=== PATIENT | female | born 1950 | race Caucasian/White ===

== ENCOUNTER 2020-11-06 13:41 | Emergency (ER) | payer MEDICARE, OTHER, SELFPAY ==
--- NOTE | ~2020-11-06 | XR_ITS ---
EXAMINATION: XR hip RT 2V w AP pelvis EXAM DATE: 11/06/2020 14:55 INDICATION: Pain in right hip/groin. TECHNIQUE: Right hip frontal, 'frog leg' projections for interpretation. Frontal projection pelvis. There is no prior study for comparison. FINDINGS: Smooth right hip femoral head contour, no radiographic evidence of avascular necrosis. Mi ld to moderate bilateral hip osteoarthritis. There are no acute fractures or dislocations identified. There is no subcutaneous gas. The soft tissue is unremarkable. There are no radiopaque foreign b odies. IMPRESSION: Mild to moderate bilateral hip osteoarthritis. Reviewed, dictated and finalized at location A.
[2020-11-06 13:46] VITALS: BP 137/87; PULSE 98; RESP 22; TEMP 36.2; O2SAT 93
--- NOTE | 2020-11-06 13:50 | PC.NURSE ---
Patient denies any fall, injury, or trauma leading to complaint of pain in the right groin. She is noted to have multiple bruises in varying stages of healing to the lower extremities and tells me that these are due to her being on blood thinners. She states: You touch me and I bruise . There is no deformity noted on examination of the hip although pain is noted with movement of the leg. There is no shortening or rotation of the extremity noted. She is able to move her foot on command and has no loss of CMS function to the right lower extremity. There is a palpable pedal pulse noted. She does tell me that she is not ambulatory at her baseline.
--- NOTE | 2020-11-06 14:44 | PC.NURSE ---
Patient to radiology at this time.
[2020-11-06 15:03] LABS: Add Urine Microscopic? YES; Appearance Urine Clear (Clear); Bacteria Urine 2+ /hpf; Bilirubin Urine Negative (Negative); Blood Urine Negative (Negative); Color Urine Yellow (Yellow); Glucose Urine UA Negative (Negative); Ketones Urine Negative (Negative); Leukocyte Esterase Ur 1+ LEU/UL (Negative); Mucus Urine Rare /lpf; Nitrate Urine Negative (Negative); Protein Urine Negative (Negative); Specific Grav Ur 1.017 (1.001-1.035); Squamous Epithelial Cell Urine Rare /hpf (Few); Urobilinogen Urine Negative mg/dL (<2.0); WBC Urine 16-20 /hpf
--- NOTE | 2020-11-06 15:41 | ED.LOWEXIN ---
HPI - Extremity Injury (Lower) General Chief Complaint: Extremity Injury, Lower Stated Complaint: hip pain x 1 week Time Seen by Provider: 11/06/20 14:34 Source: patient Mode of arrival: EMS Limitations: no limitations History of Present Illness HPI Narrative: This is a 70 year old female that presents to the ER for right hip pain present over the last week. No known injury or trauma. The pain is worse with movement and relieved with rest. Denies fever, abdominal pain, vomiting, dysuria or hematuria. Related Data Home Medications Medication Instructions Recorded Confirmed methotrexate sodium 2.5 mg tablet See Rx Instructions PO WEEKLY 07/20/19 tablet multivitamin-ferrous 1 tablet PO DAILY 07/20/19 fumarate-folic acid 18 mg-400 mcg tablet prednisolone 5 mg tablet 5 mg PO DAILY 07/20/19 prednisone 1 mg tablet 1 mg PO DAILY 07/20/19 tocilizumab 162 mg/0.9 mL 162 mg SUB-Q WEEKLY 07/20/19 subcutaneous pen injector Allergies Allergy/AdvReac Type Severity Reaction Status Date / Time pregabalin Allergy Unknown Itching Verified 07/20/19 14:30 tramadol Allergy Unknown itching Verified 07/20/19 14:30 Review of Systems Review of Systems: Narrative: CONSTITUTIONAL: Denies fever GASTROINTESTINAL: Denies abdominal pain, nausea, vomiting GENITOURINARY: Denies dysuria or hematuria. SKIN: Denies rash MUSCULOSKELETAL: Reports joint pain, and myalgia. NEUROLOGIC: Denies numbness, or weakness. All systems reviewed & are unremarkable except as noted in HPI and below PMFSH Past Medical History Medical History (Updated 11/06/20 @ 17:45 by Renate Bills PA-C) Chronic kidney disease, stage 3 (moderate) Essential (primary) hypertension Mixed hyperlipidemia Polyarthritis of multiple sites Type 2 diabetes, controlled, with neuropathy Social History Social History Second hand tobacco smoke exposure: No Alcohol intake: current Exam Narrative: Exam Narrative: GENERAL: Well-appearing, obese, and in no acute distress. HEAD: Normocephalic, atraumatic. EYES: EOMI. CHEST: Clear to auscultation. No respiratory distress. No wheezes rales or rhonchi HEART: Regular rate and rhythm. No murmur heard. Normal peripheral pulses. ABDOMEN: Soft, nontender, nondistended, normal active bowel sounds. EXTREMITIES: Normal range of motion. Pain with active ROM in the right hip. No edema or erythema. Normal DP pulses SKIN: Warm, dry, no rash. NEURO: No focal deficits. Alert and oriented x3. PSYCH: Normal mood and affect Course Vital Signs Vital signs: Vital Signs Temperature 97.2 F L 11/06/20 13:46 Pulse Rate 98 11/06/20 13:46 Respiratory Rate 22 H 11/06/20 13:46 Blood Pressure 137/87 11/06/20 13:46 Pulse Oximetry 93 11/06/20 13:46 Temperature 97.5 F L 11/06/20 16:35 Pulse Rate 97 11/06/20 16:35 Respiratory Rate 20 11/06/20 16:35 Blood Pressure 145/89 H 11/06/20 16:35 Pulse Oximetry 93 11/06/20 16:35 MDM - Extremity Injury (Lower) MDM Narrative Medical decision making narrative: Patient presents to the ER for right hip pain present over the last week. No known injury or trauma. Right hip/pelvis x-ray shows mild to moderate bilateral hip osteoarthritis. Patient denies any fever, abdominal pain, or vomiting. Abdominal exam is benign. UA does show evidence of urinary tract infection. This will be sent for culture. Patient will be started on oral antibiotics. Patient was updated on case findings. She is stable and felt appropriate for further outpatient evaluation. She is to follow-up with her orthopedic doctor. She was given warnings to return to the ER Lab Data Attestation: I reviewed the patient's lab results. Labs: Lab Results 11/06/20 Range/Units 14:42 Urine Color Yellow (Yellow) Urine Appearance Clear (Clear) Urine pH 6.0 (5.0-9.0) Ur Specific [place] 1.017 (1.001-1.035) Urine Protein Negative (Negative) mg/dL Urine Glucose (UA) Negative (Nega
[2020-11-06 16:35] VITALS: BP 145/89; PULSE 97; RESP 20; TEMP 36.4; O2SAT 93
[2020-11-06] MEDS: HYDROcodone/acetaminophen (*CRX) 5-325 MG TABLET 1 TAB PO (18:42)
[2020-11-06 18:45] VITALS: BP 139/71; PULSE 91; RESP 18; TEMP 36.3; O2SAT 94
--- NOTE | 2020-11-06 19:11 | PC.NURSE ---
I spoke with Clau at [facility] via phone and provided discharge education and instructions for this patient. I reviewed the patient's discharge paperwork with her as well as provided information about new prescription for cefdinir due to diagnosis of urinary tract infection. She verbalized understanding. I informed her that we were working to have an ambulance come and bring the patient back to [facility] and told her we would call with an ETA when the ambulance arrives to get the patient. Patient will be going back to [facility] room 27.
[2020-11-06] MEDS: OXYMETAZOLINE HCL 0.05% NAS 15 ML BTL (*BKC) 1 SPRAY NASAL (19:32)
[2020-11-06] MEDS: CEFDINIR 300 MG CAPSULE PO (19:35)
[2020-11-06 20:04] VITALS: BP 132/91; PULSE 96; RESP 20; TEMP 36.4; O2SAT 93
== END 2020-11-06 20:12 ==
PROVIDERS: Physician Assistant; Emergency Provider Emergency Medicine; PCP Internal Medicine
DX: N30.00 Acute cystitis without hematuria (principal); M16.0 Bilateral primary osteoarthritis of hip; I12.9 Hypertensive chronic kidney disease with stage 1 through stage 4 chronic kidney disease, or unspecified chronic kidney disease; E11.22 Type 2 diabetes mellitus with diabetic chronic kidney disease; N18.30 Chronic kidney disease, stage 3 unspecified; E78.2 Mixed hyperlipidemia; E11.40 Type 2 diabetes mellitus with diabetic neuropathy, unspecified; Z79.4 Long term (current) use of insulin
CPT/HCPCS: 51701; 73502; 81001; 87077; 87086; 87186; 99283; A9270

== ENCOUNTER 2022-04-03 09:45 | Outpatient (CLI) | payer MEDICARE, OTHER, SELFPAY ==
--- NOTE | 2022-04-03 13:13 | WPDPFTINT ---
PFT Procedure Performed PFT Procedure Performed Spirometry with Pre/Post Bronchodilator Diffusing Cap (DLCO) Flow Vol Loop PFT Interpretation This is a pulmonary function test with pre and post-bronchodilator spirometry and diffusing capacity. The test was performed and results interpreted in accordance with the 2019 and 2005 ATS/ERS Task Force guidelines respectively using the Global Lung Function Initiative-2012 reference equations. Patient demonstrated good effort and cooperation. Reproducibility criteria were met. The quality of the pre bronchodilator spirometry maneuver was Grade A and post bronchodilator spirometry maneuver was Grade A. Of note, the patient was unable to perform lung volumes because she was unable to get out of her wheelchair and her wheelchair was too wide to fit in the plethysmography box. Findings: Spirometry: the contour the inspiratory and expiratory flow tracing are normal. The pre bronchodilator FVC is 1.70 L, 57% predicted. The pre bronchodilator FEV1 is 1.32 L, 58% predicted. The pre bronchodilator FEV1: FVC ratio 78%. The post bronchodilator FVC is 1.73 L, representing a 2% increase. The post bronchodilator FEV1 is 1.37 L, representing a 4% increase. The post bronchodilator FEV1: FVC ratio 79%. Diffusion capacity: The diffusing capacity unadjusted for hemoglobin and carboxyhemoglobin is 13.8, 66% predicted. The diffusing capacity adjusted for alveolar volume is 5.13, 124% predicted. Impression: The FVC and FEV1 are decreased in the moderately severe range without evidence of an obstructive abnormality given the normal FEV1: FVC ratio and normal maximal expiratory air flows. This pattern is suggestive of a restrictive abnormality and lung volume measurements are recommended if clinically indicated. Of note, the patient was unable to perform lung volumes by plethysmography as she was unable to get out of her wheelchair and her wheelchair was too wide to fit in the plethysmography box. The diffusing capacity unadjusted for hemoglobin and carboxyhemoglobin is mildly decreased and normalizes when adjusted for alveolar volume. There are no prior studies for comparison
== END 2022-04-03 09:46 | disposition home or self-care (01) ==
LOC: ANHPFT 09:47
PROVIDERS: PCP Internal Medicine; Visit Provider Internal Medicine Pulmonary Disease
DX: E66.2 Morbid (severe) obesity with alveolar hypoventilation (principal); R94.2 Abnormal results of pulmonary function studies
CPT/HCPCS: 94060; 94729